=== PATIENT | male | born 1975 | race Caucasian/White ===

== ENCOUNTER 2016-10-15 00:42 | Emergency (ER) ==
[2016-10-15] MEDS ORDERED: TORADOL IM STA (00:50)
[2016-10-15 00:54] VITALS: BP 129/86; TEMP 98.1; BMI 30.7
--- NOTE | 2016-10-15 01:35 | DI ---
EXAM: Left wrist three views HISTORY: Fall 2 months ago pain COMPARISON: None. FINDINGS: There is partial subluxation at the level of the first carpometacarpal joint which may be on a degenerative basis.. There is no acute fracture. The surrounding soft tissues are unremarkab le. IMPRESSION: Partial subluxation at the level of the first carpometacarpal joint possibly on a degenerative basis .. Correlate with clinical exam and history.
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
--- NOTE | 2016-10-15 01:44 | ED.PDOC ---
General ED Provider: Dr. LALA NOEL-ER Chief Complaint: Finger Pain/Injury Stated Complaint: i fell on my thumb 2mos ago--it still hurts --i didnt reinjure it Time Seen by Physician: 00:45 Mode of Arrival: Walk-In Information Source: Patient Exam Limitations: No limitations Nursing and Triage Documentation Reviewed and Agree: Yes Musculoskeletal Complaint Exam - Hand/Wrist Complaint/Exam Location of Pain: Reports: Left, Digit #1 Mechanism of Injury: Reports: Trauma Onset/Duration: 2mos ago Symptoms Are: Still present Onset of Pain: Reports: Immediate Initial Severity: Mild Current Severity: Mild Location: Reports: Discrete (base of the left thumb) Character: Reports: Dull, Aching, Stiffness, Burning Alleviating: Reports: None Aggravating: Reports: Movement Associated Signs and Symptoms: Reports: Numbness. Denies: Swelling, Redness, Bruising, Fever, Weakness, Tingling Tenderness: Present: Metacarpal, Phalanx Compartment Syndrome Risk Factors: Present: Pain. Absent: Paralysis, Pallor, Pulselessness, Paresthesias Differential Diagnoses: Dislocation, Closed Fracture Review of Systems - Review Of Systems Constitutional: Reports: No symptoms Eyes: Reports: No symptoms Ears, Nose, Mouth, Throat: Reports: No symptoms Respiratory: Reports: No symptoms Cardiac: Reports: No symptoms GI: Reports: No symptoms : Reports: No symptoms Musculoskeletal: Reports: Joint pain, Muscle pain Skin: Reports: No symptoms Neurological: Reports: No symptoms Endocrine: Reports: No symptoms Hematologic/Lymphatic: Reports: No symptoms All Other Systems: Reviewed and Negative Past Medical History - Past Medical History Previously Healthy: Yes Endocrine: Reports: None Cardiovascular: Reports: None Respiratory: Reports: None Hematological: Reports: None Gastrointestinal: Reports: Gallstones Genitourinary: Reports: None Neuro/Psych: Reports: Anxiety, Depression, Bipolar Disorder Musculoskeletal: Reports: None Cancer: Reports: None - Surgical History General Surgical History: Reports: Other (Left eye ) - Family History Family History: Reports: None - Social History Smoking Status: Current every day smoker, Heavy tobacco smoker Hx Substance Use: Yes (SPEED) Alcohol Screening: Occasionally Lives: With family - Immunizations Tetanus Shot up to Date: Yes Physical Exam - Physical Exam Appearance: Well-appearing, No pain distress, Well-nourished Pain Distress: Mild Eyes: MICHAEL, EOMI, Conjunctiva clear ENT: Ears normal Neck: Supple Respiratory: Airway patent Cardiovascular: RRR, Pulses normal, No rub, No murmur GI/: Soft, Nontender, No masses, Bowel sounds normal, No Organomegaly Musculoskeletal: Limited ROM Skin: Warm, Dry, Normal color Neurological: Sensation intact, Motor intact, Reflexes intact, Cranial nerves intact, Alert, Oriented Psychiatric: Affect appropriate Interpretation - Radiology Interpretation Radiology Interpretation By: Radiologist Radiology Results: Positive ("partial dislocation of the first carpometacarpal joint") Critical Care Note - Critical Care Note Total Time (mins): 0 Course - Course Orders, Labs, Meds: Orders Category Date Time Status Splint [ED SPLINT APPLICATION] .ONCE EMERGENCY 10/15/16 01:41 Active Ketorolac Tromethamine [Toradol] MEDS 10/15/16 00:50 Discontinued 60 mg IM ONCE STA THUMB, LEFT Stat RADS 10/15/16 00:49 Completed WRIST, LEFT 3 VIEWS Stat RADS 10/15/16 00:49 Completed Medications Discontinued Medications Generic Name Dose Route Start Last Admin Trade Name Janesq PRN Reason Stop Dose Admin Ketorolac Tromethamine 60 mg 10/15/16 00:50 Toradol IM 10/15/16 00:51 ONCE STA Vital Signs: Temp Pulse Resp BP Pulse Ox 10/15/16 00:45 98.1 F 91 H 20 129/86 95 Departure - Departure Time of Disposition: 01:46 Disposition: HOME SELF-CARE Discharge Problem: Closed dislocation of finger Qualifiers: Encounter type: initial encounter Qualifier Code: (S63.259A) Unspecified dislocation of unspecified finger, initial encounter Instructions: Finger Dislocation (ED) Condition: Good Pt referred to PMD for follow-up: Yes Additional Instructions: stay in splint--norco 5mg q 6hrs prn pain #10--talk to Griffin here on sunday to arrange ortho referral Allergies/Adverse Reactions: Allergies No Known Allergies Allergy (Verified 10/15/16 00:53) Home Medications: Ambulatory Orders 1 [No Reported Medications] 09/03/14 Disposition Discussed With: Patient
== END 2016-10-15 02:00 | disposition home or self-care (01) ==
LOC: ED 00:42
DX: S63.042A Subluxation of carpometacarpal joint of left thumb, initial encounter (principal); W19.XXXA Unspecified fall, initial encounter; F17.210 Nicotine dependence, cigarettes, uncomplicated
CPT/HCPCS: 96372; 99283

== ENCOUNTER 2016-11-23 23:44 | Emergency (ER) ==
--- NOTE | 2016-11-23 23:51 | ED.PDOC ---
General ED Provider: Dr. LALA NOEL-ER Chief Complaint: Finger Pain/Injury Stated Complaint: i was seen here a few weeks ago--told had dislocation--went to ortho group and told it was arthritis--give mobic and not helping=--i have not reinjured it Time Seen by Physician: 23:50 Mode of Arrival: Walk-In Information Source: Patient Exam Limitations: No limitations Nursing and Triage Documentation Reviewed and Agree: Yes Musculoskeletal Complaint Exam - Hand/Wrist Complaint/Exam Location of Pain: Reports: Left, Hand, Digit #1 Mechanism of Injury: Reports: Trauma Onset/Duration: several weeks ago Symptoms Are: Still present Onset of Pain: Reports: Immediate Initial Severity: Mild Current Severity: Mild Location: Reports: Discrete (base of left thumb) Character: Reports: Dull, Aching, Throbbing Aggravating: Reports: Movement Associated Signs and Symptoms: Denies: Swelling, Redness, Bruising, Fever, Weakness, Numbness, Tingling Hand/Wrist Findings: Present: Swelling Tenderness: Present: Metacarpal Compartment Syndrome Risk Factors: Present: Pain Differential Diagnoses: Dislocation, Closed Fracture, Sprain, Strain, Other Review of Systems - Review Of Systems Constitutional: Reports: No symptoms Eyes: Reports: No symptoms Ears, Nose, Mouth, Throat: Reports: No symptoms Respiratory: Reports: No symptoms Cardiac: Reports: No symptoms GI: Reports: No symptoms : Reports: No symptoms Musculoskeletal: Reports: Joint pain Skin: Reports: No symptoms Neurological: Reports: No symptoms Endocrine: Reports: No symptoms Hematologic/Lymphatic: Reports: No symptoms All Other Systems: Reviewed and Negative Past Medical History - Past Medical History Previously Healthy: Yes Endocrine: Reports: None Cardiovascular: Reports: None Respiratory: Reports: None Hematological: Reports: None Gastrointestinal: Reports: Gallstones Genitourinary: Reports: None Neuro/Psych: Reports: Anxiety, Depression, Bipolar Disorder Musculoskeletal: Reports: None Cancer: Reports: None - Surgical History General Surgical History: Reports: Other (Left eye ) - Family History Family History: Reports: None - Social History Smoking Status: Current every day smoker, Heavy tobacco smoker Hx Substance Use: Yes (SPEED) Alcohol Screening: Occasionally Lives: With family Physical Exam - Physical Exam Appearance: Well-appearing, No pain distress, Well-nourished Pain Distress: Mild Eyes: MICHAEL, EOMI, Conjunctiva clear ENT: Ears normal, Nose normal, Oropharynx normal Neck: Supple Respiratory: Airway patent Cardiovascular: RRR, Pulses normal, No rub, No murmur GI/: Soft, Nontender, No masses, Bowel sounds normal, No Organomegaly Musculoskeletal: Limited ROM Skin: Warm, Dry, Normal color Neurological: Sensation intact Psychiatric: Affect appropriate Critical Care Note - Critical Care Note Total Time (mins): 0 Course - Course Orders, Labs, Meds: Orders Category Date Time Status MARY [ED MARY WRAP] .ONCE EMERGENCY 11/23/16 23:49 Active Departure - Departure Time of Disposition: 23:52 Disposition: HOME SELF-CARE Discharge Problem: Thumb pain Qualifiers: Laterality: left Qualifier Code: (M79.645) Pain in left finger(s) Instructions: Swollen Joint (ED) Condition: Good Pt referred to PMD for follow-up: Yes Additional Instructions: norco 5mg q 4hrs prn #10--its important for you to get back to your orthopedic doctor as soon as possible and let them know you are having trouble Allergies/Adverse Reactions: Allergies No Known Allergies Allergy (Verified 10/15/16 00:53) Home Medications: Ambulatory Orders 1 [No Reported Medications] 09/03/14 Ibuprofen 800 mg PO PRN 10/17/16 Disposition Discussed With: Patient
[2016-11-23 23:54] VITALS: BP 132/92; TEMP 98.1; BMI 30.9
== END 2016-11-24 00:04 | disposition home or self-care (01) ==
LOC: ED 23:44
DX: M79.645 Pain in left finger(s) (principal); F17.210 Nicotine dependence, cigarettes, uncomplicated
CPT/HCPCS: 99282

== ENCOUNTER 2017-03-02 17:00 | Emergency (ER) ==
[2017-03-02 17:00] VITALS: BMI 30.9
[2017-03-02 17:04] VITALS: BP 157/99; TEMP 97.6
--- NOTE | 2017-03-02 17:33 | DI ---
Exam: Three x-rays of the left hand. Comparison: Left thumb x-rays performed 10/15/2016. Reason for exam: Pain in base of thumb times 1 month. FINDINGS: No acute fracture. No unexplained calcific soft tissue density or radiopaque retained fore ign body. There is similar appearing mild subluxation of the first carpal-metacarpal joint space. Impression: Similar appearing partial subluxation of the first carpal-metacarpal joint space without acute fracture.
--- NOTE | 2017-03-02 17:34 | DI ---
Exam: Four x-rays of the left wrist. Comparison: 10/15/2016. Reason for exam: Pain. FINDINGS: Partial subluxation of the left first carpal-metacarpal joint space with mild degenerative disease. No acute fracture is seen. Imaging findings appear similar to the previous radiograph per formed on 10/15/2016. No unexplained calcific soft tissue density or radiopaque retained foreign bod y. Impression: Partial subluxation of the left first carpal-metacarpal joint space. Imaging findings do not appear significantly changed from the prior radiograph performed on 10/15/2016
--- NOTE | 2017-03-02 17:36 | ED.PDOC ---
General ED Provider: Dr. ESTHER JEONG Chief Complaint: Finger Pain/Injury Stated Complaint: LEFT THUM AND WRIST PAIN CHRONIC Time Seen by Physician: 17:00 (PARTIAL SUBLUXATION OF THE FIRST CARPOMETACARPAL JOINT OLD ISSUE ) Mode of Arrival: Walk-In Information Source: Patient Exam Limitations: No limitations Nursing and Triage Documentation Reviewed and Agree: Yes (NO NEW INJURY) Musculoskeletal Complaint Exam - Hand/Wrist Complaint/Exam Location of Pain: Reports: Left, Digit #1 Mechanism of Injury: Reports: No known trauma Onset/Duration: CHRONIC ISSUE Symptoms Are: Still present Onset of Pain: Reports: Weeks (TO MONTHS) Initial Severity: Moderate Current Severity: Mild Location: Reports: Discrete (BASE LEFT THUMB DID NOT INJUR THE THE FINGER ) Character: Reports: Spasmodic, Stiffness Alleviating: Reports: Rest Aggravating: Reports: Movement Associated Signs and Symptoms: Denies: Swelling, Redness, Bruising, Fever, Weakness, Numbness, Tingling Related History: Reports: Similar episode Related Surgical History: Reports: None Hand/Wrist Findings: Absent: Swelling, Ecchymosis, Abnormal contour, Tinel's Sign, Phalen's Sign, Laceration Tenderness: Present: Radius, Carpal Differential Diagnoses: Closed Fracture, Sprain, Strain Review of Systems - Review Of Systems Constitutional: Reports: No symptoms Eyes: Reports: No symptoms Ears, Nose, Mouth, Throat: Reports: No symptoms Respiratory: Reports: No symptoms Cardiac: Reports: No symptoms GI: Reports: No symptoms : Reports: No symptoms Musculoskeletal: Reports: Joint pain (BASE OF THE LEFT THUMB) Skin: Reports: No symptoms Neurological: Reports: No symptoms Endocrine: Reports: No symptoms Hematologic/Lymphatic: Reports: No symptoms All Other Systems: Reviewed and Negative Past Medical History - Past Medical History Previously Healthy: Yes Endocrine: Reports: None Cardiovascular: Reports: None Respiratory: Reports: None Hematological: Reports: None Gastrointestinal: Reports: Gallstones Genitourinary: Reports: None Neuro/Psych: Reports: Anxiety, Depression, Bipolar Disorder Musculoskeletal: Reports: None Cancer: Reports: None - Surgical History General Surgical History: Reports: Other (Left eye ) - Family History Family History: Reports: None - Social History Smoking Status: Current every day smoker, Heavy tobacco smoker Hx Substance Use: Yes (SPEED) Alcohol Screening: Occasionally Physical Exam - Physical Exam Appearance: Well-appearing, No pain distress, Well-nourished Eyes: MICHAEL, EOMI, Conjunctiva clear ENT: Ears normal, Nose normal, Oropharynx normal Respiratory: Airway patent, Breath sounds clear, Breath sounds equal, Respirations nonlabored Cardiovascular: RRR, Pulses normal, No rub, No murmur GI/: Soft, Nontender, No masses, Bowel sounds normal, No Organomegaly Musculoskeletal: Normal strength, ROM intact, No edema, No calf tenderness Skin: Warm, Dry, Normal color Neurological: Sensation intact, Motor intact, Reflexes intact, Cranial nerves intact, Alert, Oriented Psychiatric: Affect appropriate, Mood appropriate Interpretation - Radiology Interpretation Radiology Interpretation By: Radiologist Critical Care Note - Critical Care Note Total Time (mins): 0 Course - Course Orders, Labs, Meds: Orders Category Date Time Status HAND, LEFT 3 VIEWS Stat RADS 03/02/17 17:10 Taken WRIST, LEFT 3 VIEWS Stat RADS 03/02/17 17:10 Taken Vital Signs: Temp Pulse Resp BP Pulse Ox 03/02/17 17:00 97.6 F 93 H 18 157/99 H 98 Departure - Departure Time of Disposition: 19:00 Disposition: HOME SELF-CARE Discharge Problem: Pain in finger Instructions: Wrist Injury (ED) Condition: Good Pt referred to PMD for follow-up: Yes Additional Instructions: Please call your Family Physician as soon as possible to schedule a follow-up appointment. YOUR INJURY REQUIRES FOLLOW UP PLEASE FOLLOW UP WITH [facility] Prescriptions: Hydrocodone/Acetaminophen [[place] 10-325 Tablet] 1 each PO Q8HR #7 tablet Allergies/Adverse Reactions: Allergies No Known Allergies Allergy (Verified 03/02/17 17:04) Home Medications: Ambulatory Orders Hydrocodone/Acetaminophen [[place] 10-325 Tablet] 1 each PO Q8HR #7 tablet Disposition Discussed With: Patient
== END 2017-03-02 17:57 | disposition home or self-care (01) ==
LOC: ED 17:00
DX: M79.645 Pain in left finger(s) (principal); M25.532 Pain in left wrist; F17.210 Nicotine dependence, cigarettes, uncomplicated
CPT/HCPCS: 99282

== ENCOUNTER 2017-05-19 19:01 | Emergency (ER) ==
[2017-05-19 19:11] VITALS: BP 144/92; TEMP 97.6; BMI 23.1
[2017-05-19] MEDS ORDERED: TORADOL IM STA (19:27)
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
--- NOTE | 2017-05-19 19:52 | DI ---
EXAM: Left hand; PA, lateral, and oblique views HISTORY: Injury and pain COMPARSION: Wrist radiograph from same day. FINDINGS: There is no acute fracture or dislocation. Joint space narrowing and marginal osteophytosis at the first carpometacarpal joint is seen. OPINION: No acute osseous abnormality of the hand. First carpometacarpal joint osteoarthritis.
--- NOTE | 2017-05-19 19:56 | DI ---
EXAM: Left wrist; PA, lateral, and oblique views HISTORY: Injury and pain COMPARISON: Hand radiograph from same day. FINDINGS: There is no acute fracture or dislocation. Joint space narrowing with marginal osteophytosi s at the first carpometacarpal joint is again seen. Otherwise joint spaces and alignment appear pres erved. OPINION: No acute osseous abnormality of the wrist. First carpometacarpal joint osteoarthritis.
== END 2017-05-19 20:37 | disposition home or self-care (01) ==
LOC: ED 19:01
DX: M19.042 Primary osteoarthritis, left hand (principal)
CPT/HCPCS: 96372; 99282

== ENCOUNTER 2017-12-17 20:50 | Emergency (ER) ==
[2017-12-17 20:58] VITALS: BP 137/98; TEMP 98.4; BMI 34.3
--- NOTE | 2017-12-17 21:47 | DI ---
Exam: Left thumb. HISTORY: Injury. FINDINGS: AP, lateral and oblique views of the left thumb. There are no acute or healing fractures. There are no lytic or blastic lesions. Joint narrowing is seen in the first carpometacarpal joint. There are no erosive changes. IMPRESSION: 1. No acute fractures. 2. Arthritis of the first carpometacarpal joint.
--- NOTE | 2017-12-17 22:06 | CT ---
Exam: CT left wrist History: Injury and pain with questionable scaphoid fracture Technique: [address] left wrist with multiplanar reformations FINDINGS: Distal radius and ulna are intact. No carpal fracture. Advanced osteoarthritic change of the first carpal-metacarpal joint. There is no scaphoid fracture. Prior hamate tip fracture versus variant. No soft tissue abnormalities. Impression: No acute wrist fracture. Advanced osteoarthritic change of the first carpal-metacarpal joint
--- NOTE | 2017-12-17 22:20 | ED.PDOC ---
General ED Provider: Dr. LALA NOEL-ER Chief Complaint: Finger Pain/Injury Stated Complaint: my thumb really hurts to move Time Seen by Physician: 20:55 Mode of Arrival: Walk-In Information Source: Patient Exam Limitations: No limitations Nursing and Triage Documentation Reviewed and Agree: Yes Does patient meet sepsis criteria?: No System Inflammatory Response Syndrome: Not Applicable Sepsis Protocol: For patient's 13 years and over: Temp is 96.8 and below OR 101 and greater Pulse >90 BPM Resp >20/minute Acutely Altered Mental Status Are patient's symptoms suggestive of a new infection, such as: -Pneumonia -Skin, Soft Tissue -Endocarditis -UTI -Bone, Joint Infection -Implantable Device -Acute Abdominal Infection -Wound Infection -Meningitis -Blood Stream Catheter Infection -Unknown Musculoskeletal Complaint Exam - Hand/Wrist Complaint/Exam Location of Pain: Reports: Left, Hand Mechanism of Injury: Reports: No known trauma Onset/Duration: several weeks Symptoms Are: Still present Onset of Pain: Reports: Immediate Initial Severity: Mild Current Severity: Moderate Location: Reports: Discrete Character: Reports: Dull, Aching Aggravating: Reports: Movement Associated Signs and Symptoms: Denies: Swelling, Redness, Bruising, Fever, Weakness, Numbness, Tingling Tenderness: Present: Snuff box, Carpal, Metacarpal Compartment Syndrome Risk Factors: Present: Pain Differential Diagnoses: Closed Fracture, Sprain, Strain, Tenosynovitis Review of Systems - Review Of Systems Constitutional: Reports: No symptoms Eyes: Reports: No symptoms Ears, Nose, Mouth, Throat: Reports: No symptoms Respiratory: Reports: No symptoms Cardiac: Reports: No symptoms GI: Reports: No symptoms : Reports: No symptoms Musculoskeletal: Reports: Joint pain Skin: Reports: No symptoms Neurological: Reports: No symptoms Endocrine: Reports: No symptoms Hematologic/Lymphatic: Reports: No symptoms All Other Systems: Reviewed and Negative Past Medical History - Past Medical History Previously Healthy: Yes Endocrine: Reports: None Cardiovascular: Reports: None Respiratory: Reports: None Hematological: Reports: None Gastrointestinal: Reports: Gallstones Genitourinary: Reports: None Neuro/Psych: Reports: Anxiety, Depression, Bipolar Disorder Musculoskeletal: Reports: None Cancer: Reports: None - Surgical History General Surgical History: Reports: Other (Left eye ) - Family History Family History: Reports: None - Social History Smoking Status: Former smoker Hx Substance Use: Yes (states, "speed") Alcohol Screening: None - Immunizations Tetanus Shot up to Date: No (unsure) Physical Exam - Physical Exam Appearance: Well-appearing, No pain distress, Well-nourished Pain Distress: Moderate Eyes: MICHAEL, EOMI, Conjunctiva clear ENT: Ears normal, Nose normal, Oropharynx normal Neck: Supple Respiratory: Airway patent, Breath sounds clear, Breath sounds equal, Respirations nonlabored Cardiovascular: RRR, Pulses normal, No rub, No murmur GI/: Soft Musculoskeletal: Limited ROM Skin: Warm, Dry, Normal color Neurological: Sensation intact, Motor intact, Reflexes intact, Cranial nerves intact, Alert, Oriented Psychiatric: Affect appropriate, Mood appropriate Interpretation - Radiology Interpretation Radiology Interpretation By: Radiologist Radiology Results: Positive Critical Care Note - Critical Care Note Total Time (mins): 0 Course - Course Orders, Labs, Meds: Orders Category Date Time Status CT WRIST LEFT WITHOUT CONTRAST Stat RADS 12/17/17 21:01 Completed THUMB, LEFT Stat RADS 12/17/17 21:00 Completed Vital Signs: Temp Pulse Resp BP Pulse Ox 12/17/17 20:53 98.4 F 104 H 20 137/98 H 96 Departure - Departure Time of Disposition: 22:20 Disposition: HOME SELF-CARE Discharge Problem: Thumb pain Qualifiers: Laterality: left Qualified Code(s): M79.645 - Pain in left finger(s) Instructions: Osteoarthritis (ED) Condition: Good Pt referred to PMD for follow-up: Yes IPMP verified?: No Additional Instructions: norco 7.5mg q 4hrs prn pain #10--come to the clinic for referral to hand specialist Allergies/Adverse Reactions: Allergies No Known Allergies Allergy (Verified 12/17/17 20:58) Home Medications: Ambulatory Orders 1 [No Reported Medications] 12/17/17 Disposition Discussed With: Patient
== END 2017-12-17 22:35 | disposition home or self-care (01) ==
LOC: ED 20:50
DX: M79.645 Pain in left finger(s) (principal)
CPT/HCPCS: 99283

== ENCOUNTER 2018-09-17 13:17 | Emergency (ER) | payer OTHER ==
[2018-09-17 13:27] VITALS: BP 146/91; TEMP 99; BMI 36.3
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
== END 2018-09-17 15:59 | disposition home or self-care (01) ==
LOC: ED 13:17
DX: F15.10 Other stimulant abuse, uncomplicated (principal); R39.9 Unspecified symptoms and signs involving the genitourinary system; Z20.2 Contact with and (suspected) exposure to infections with a predominantly sexual mode of transmission
CPT/HCPCS: 36415; 80053; 80306; 81001; 85025; 87800; 99283